=== PATIENT | female | born 1970 | race Caucasian/White ===

== ENCOUNTER 2025-09-24 12:20 | Outpatient (CLI) | payer BC ==
[2025-09-24 14:07] LABS: Hematocrit 30.4 % (34.9-44.5); Hemoglobin 10.1 g/dL (12.0-15.5); Mean Corpuscular Hemoglobin 35.3 pg (27.0-33.0); Mean Corpuscular Volume 106.3 fL (81.6-98.3); Platelet Count 56 10x3/uL (150-450); Red Blood Cell (RBC) Count 2.86 10x6/uL (3.90-5.03); White Blood Cell (WBC) Count 4.31 10x3/uL (3.5-10.5)
[2025-09-24 14:12] LABS: Anion Gap 12 mmol/L (10-20); BUN (Urea Nitrogen) 28 mg/dL (9.8-20.1); Calc. Creatinine Clearance 0 mL/min (70-130); Calcium 8.2 mg/dL (7.8-10.44); Carbon Dioxide 23 mmol/L (22-29); Chloride 110 mmol/L (98-107); Glucose 110 mg/dL (70-105); Potassium 4.3 mmol/L (3.5-5.1); Sodium 141 mmol/L (136-145)
== END 2025-09-24 12:21 | disposition home or self-care (01) ==
LOC: CSHLAB 12:20
PROVIDERS: ATTEND Surgery
DX: Z01.818 Encounter for other preprocedural examination (principal); C38.0 Malignant neoplasm of heart; R94.31 Abnormal electrocardiogram [ECG] [EKG]
CPT/HCPCS: 93005; 93010

== ENCOUNTER 2025-10-02 05:35 | Day surgery (SDC) | payer BC ==
[2025-09-24 12:46] VITALS: BMI 26.6
[2025-10-02] MEDS ORDERED: Bupivacaine HCl 0.5%/Epinephrine 1:200,000/PF 30 ml Vial ONE (06:24)
[2025-10-02] MEDS ORDERED: PHENYLEPHRINE-NS 100 MCG/ML 10 ML SYRINGE ONE (06:32)
[2025-10-02] MEDS ORDERED: Lidocaine 1% (PF) 30 ML VIAL ONE (06:32)
[2025-10-02] MEDS ORDERED: Ketorolac Tromethamine 30 MG (1 mL) VIAL ONE (06:34)
[2025-10-02] MEDS ORDERED: Lidocaine 2% PF 100 mg/5 ml Syringe ONE (06:34)
[2025-10-02] MEDS ORDERED: PROPOFOL 40 ML ONE (06:35)
[2025-10-02] MEDS ORDERED: CEFAZOLIN 2 GM VIAL ONE (06:53)
[2025-10-02] MEDS ORDERED: Sevoflurane 250 ML INH ANEST BOTTLE ONE (07:02)
[2025-10-02] MEDS ORDERED: HYDROcodone/Acetaminophen 5/325 mg Tablet ONE (08:17)
== END 2025-10-02 09:02 | disposition home or self-care (01) ==
LOC: CSHSDC 05:35
PROVIDERS: ATTEND Surgery
PROC: 0JH60WZ Insertion of Totally Implantable Vascular Access Device into Chest Subcutaneous Tissue and Fascia, Open Approach (ICD-10-PCS; principal; 2025-10-02)
DX: C38.0 Malignant neoplasm of heart (principal); I48.0 Paroxysmal atrial fibrillation; K21.9 Gastro-esophageal reflux disease without esophagitis; D69.59 Other secondary thrombocytopenia; Z88.8 Allergy status to other drugs, medicaments and biological substances; Z79.82 Long term (current) use of aspirin
CPT/HCPCS: 71045; A6258; C1788; J1100; J1642; J1885; J2003; J2250; J2704; J3010